=== PATIENT | female | born 1975 | race Caucasian/White ===

== ENCOUNTER 2019-10-30 00:22 | Observation (INO) ==
[2019-10-30] MEDS ORDERED: Morphine Sulfate 2 MG/ML SYRINGE IVP ONE (00:46)
[2019-10-30] MEDS ORDERED: *HR* Propofol 200 MG/20 ML VIAL IVP ONE ×2 (02:05→09:09)
[2019-10-30] MEDS ORDERED: 0.9 % Sodium Chloride 1,000 ML IV ONE (02:40)
[2019-10-30] MEDS ORDERED: Tdap (Boostrix) Vaccine 0.5 ML SYRINGE IM ONE (03:02)
[2019-10-30] MEDS ORDERED: Clindamycin 900 MG/50 ML 900 MG/50 ML IV.SOLN IVPB ONE ×2 (03:07→09:30)
[2019-10-30] MEDS ORDERED: *HR* LORazepam 2 MG/ML VIAL IVP PRN ×6 (03:56→12:08)
[2019-10-30] MEDS ORDERED: Naloxone 0.4 MG/ML INJ IVP PRN ×2 (03:57→12:08)
[2019-10-30] MEDS ORDERED: Ondansetron 4 MG/2 ML VIAL IVP PRN ×2 (03:57→12:08)
[2019-10-30] MEDS ORDERED: 0.9 % Sodium Chloride 1,000 ML IVC SCH ×2 (04:00→12:08)
[2019-10-30 04:29] LABS: Basophils % 0.3 %; Eosinophils % 0.3 %; Hemoglobin 12.9 g/dL (11.5-15.4); Immature Granulocytes % 0.3 % (0-4); Lymphocytes # 2.5 K/mcL (0.6-4.6); Lymphocytes % 25.3 %; Mean Corpuscular HGB Conc 33.1 g/dL (31.6-35.5); Mean Corpuscular Hemoglobin 31.2 pg (28.0-33.3); Mean Corpuscular Volume 94.2 fL (83.0-100.0); Mean Platelet Volume 9.9 fL (9.4-12.4); Monocytes # 0.5 K/mcL (0.0-1.3); Monocytes % 4.6 %; Neutrophils # 6.9 K/mcL (1.6-8.9); Platelet Count 189 K/mcL (140-400); Red Blood Count 4.14 M/mcL (3.82-4.97); Red Cell Distribution Width 13.5 % (11.5-14.5); Segmented Neutrophils % 69.2 %; White Blood Count 9.9 K/mcL (4.3-11.1)
[2019-10-30 04:33] LABS: Prothrombin Time 11.6 Seconds (9.4-12.1)
[2019-10-30 04:36] LABS: Activated Partial Thrombo Time 33.2 Seconds (26.0-36.0)
[2019-10-30 04:50] LABS: BUN/Creatinine Ratio 16 (6-26); Blood Urea Nitrogen 12 mg/dL (6-20); Calcium 8.7 mg/dL (8.6-10.3); Carbon Dioxide 22 mEq/L (23-29); Chloride 111 mEq/L (98-107); Glucose 104 mg/dL (70-105); Osmolality,Calculated 294 (280-300); Potassium 3.7 mEq/L (3.5-5.1); Sodium 142 mEq/L (136-145); eGFR For African Americans > 60 (> 60); eGFR For Non-African Americans > 60 (> 60)
[2019-10-30] MEDS ORDERED: *HR* FentaNYL (PF) 100 MCG/2 ML VIAL ONE (09:09)
[2019-10-30] MEDS ORDERED: Ondansetron 4 MG/2 ML VIAL ONE (09:09)
[2019-10-30] MEDS ORDERED: Lidocaine -MPF 2% 2 ML VIAL ONE (09:09)
[2019-10-30] MEDS ORDERED: Dexamethasone 4 MG/ML VIAL ONE (09:09)
[2019-10-30] MEDS ORDERED: Bupivacaine/EPI 1:200k 0.5%PF 10 ML VIAL ONE (09:19)
[2019-10-30] MEDS ORDERED: EPHEDrine 50 MG/ML VIAL ONE (10:03)
[2019-10-30] MEDS ORDERED: *HR* Promethazine 25 MG/ML VIAL IVP PRN (11:21)
[2019-10-30] MEDS: *HR* HYDROmorphone (PF) 1 MG/ML SYRINGE IVP PRN ×2 (11:28→11:38)
[2019-10-30] MEDS ORDERED: Ringers Solution, Lactated 1,000 ML ONE (11:57)
[2019-10-30] MEDS: Clindamycin 900 MG/50 ML 900 MG/50 ML IV.SOLN IVPB SCH ×2 (15:49→23:30)
[2019-10-31 07:39] VITALS: BP 122/68
== END 2019-10-31 11:12 | disposition home or self-care (01) ==
LOC: EMEROOARM 00:22 → 3NENU 00:22
PROVIDERS: ADMIT Internal Medicine; ATTEND Internal Medicine